=== PATIENT | male | born 1950 | race Caucasian/White ===

== ENCOUNTER 2016-08-31 10:27 | Emergency (ER) | payer BC, OTHER ==
--- NOTE | 2016-08-31 10:33 | PDOC ---
History of Present Illness <Chelo Garza - Last Filed: 08/31/16 11:41> <Tristan Mckinney - Last Filed: 08/31/16 15:34> - General Stated Complaint: CHEST PAIN - History of Present Illness Initial Comments: 08/31/16 10:54 Patient is a 66 year old male, former smoker, with significant medical hx of HLD and HTN who is presenting to the ED with precordial chest pain and diaphoresis since this morning. 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 The patient went outside and had a sudden onset of chest pain and diaphoresis. He sat down and called out to his that he wasn't feeling well. Patient's called EMS and he was brought to the ED. The patient rates his chest pain 7/10 in severity. Denies hx of past NM. NKDA. (Chelo Garza) Past History <Chelo Garza - Last Filed: 08/31/16 11:41> - Past Medical History HTN: Yes <Tristan Mckinnye - Last Filed: 08/31/16 15:34> - Past Medical History Allergies/Adverse Reactions: Allergies Allergy/AdvReac Type Severity Reaction Status Date / Time No Allergy Information Allergy Verified 08/31/16 10:48 Available Home Medications: Ambulatory Orders Atorvastatin Ca [Lipitor] 40 mg PO HS 08/31/16 Folic Acid 1 mg PO DAILY 08/31/16 Irbesartan 150 mg PO DAILY 08/31/16 Leflunomide [Arava] 20 mg PO DAILY 08/31/16 Methotrexate [Mexate -] 2.5 mg PO Q7D 08/31/16 Metoprolol Succinate [Toprol Xl -] 25 mg PO DAILY 08/31/16 Tamsulosin HCl [Flomax] 0.4 mg PO DAILY 08/31/16 Review of Systems <Chelo Garza - Last Filed: 08/31/16 11:41> <Tristan Mckinney - Last Filed: 08/31/16 15:34> - Review of Systems Comments:: 08/31/16 10:58 CONSTITUTIONAL: Present: diaphoresis Absent: fever, chills, generalized weakness, malaise, loss of appetite HEENT: Absent: rhinorrhea, nasal congestion, throat pain, throat swelling, difficulty swallowing, mouth swelling, ear pain, eye pain, visual changes CARDIOVASCULAR: Present: chest pain Absent: syncope, palpitations, irregular heart rate, lightheadedness, peripheral edema RESPIRATORY: Absent: cough, shortness of breath, dyspnea with exertion, orthopnea, wheezing, stridor, hemoptysis GASTROINTESTINAL: Absent: abdominal pain, abdominal distension, nausea, vomiting, diarrhea, constipation, melena, hematochezia GENITOURINARY: Absent: dysuria, frequency, urgency, hesitancy, hematuria, flank pain, genital pain MUSCULOSKELETAL: Absent: myalgia, arthralgia, joint swelling SKIN: Absent: rash, itching, pallor HEMATOLOGIC/IMMUNOLOGIC: Absent: easy bleeding, easy bruising, lymphadenopathy, frequent infections ENDOCRINE: Absent: unexplained weight gain, unexplained weight loss, heat intolerance, cold intolerance NEUROLOGIC: Absent: headache, focal weakness or paresthesia, dizziness, unsteady gait, seizure, mental status changes, bladder or bowel incontinence. PSYCHIATRIC: Absent: anxiety, depression, suicidal or homicidal ideation, hallucinations (Chelo Garza) *Physical Exam <Chelo Garza - Last Filed: 08/31/16 11:41> <Tristan Mckinney - Last Filed: 08/31/16 15:34> - Vital Signs Last Vital Signs Temp Pulse Resp BP Pulse Ox 97 F L 72 18 142/104 100 08/31/16 11:00 08/31/16 11:25 08/31/16 11:25 08/31/16 11:25 08/31/16 11:25 - Physical Exam Comments: 08/31/16 11:02 GENERAL: Well developed, well nourished. Awake and alert. Diaphoretic. HEENT: Normocephalic, atraumatic. PERRLA, EOMI. No conjunctival pallor. Sclera are non- icteric. Moist mucous membranes. Oropharynx is clear. NECK: Supple. Full ROM. No JVD. Carotid pulses 2+ and symmetric, without bruits. No thyromegaly. No lymphadenopathy. CARDIOVASCULAR: EKG shows AFib although patient sounds regular on auscultation. No murmurs, rubs , or gallops. Distal pulses are 2+ and symmetric. PULMONARY: No evidence of respiratory distress. Lungs clear to auscultation bilaterally. No wheezing, rales or rhonchi. ABDOMINAL: Soft. Non-tender. Non-distended. No rebound or guarding. No organomegaly. Normoactive bowel sounds. MUSCULOSKELETAL: Normal range of motion at all joints. No bony deformities or tenderness. No CVA tenderness. EXTREMITIES: No cyanosis. No clubbing. No edema. No calf tenderness. SKIN: Warm and dry. Normal capillary refill. No rashes. No jaundice. NEUROLOGICAL: Alert, awake, appropriate. Cranial nerves 2-12 intact. Normal speech. Gait is normal without ataxia. PSYCHIATRIC: Cooperative. Good eye contact. Appropriate mood and affect. (Chelo Garza) Heart Score/ECG Review <Chelo Garza - Last Filed: 08/31/16 11:41> <Tristan Mckinney - Last Filed: 08/31/16 15:34> #1 08/31/16 11:05 Atrial fibrillation at 77 bpm Inferior-posterior infarct, possibly acute Lateral injury pattern ACUTE NM / STEMI Consider right ventricular involvement in acute inferior infarct Abnormal ECG (Chelo Garza) ED Treatment Course - LABORATORY CBC & Chemistry Diagram: 08/31/16 10:45 08/31/16 10:45 <Chelo Garza - Last Filed: 08/31/16 11:41> - LABORATORY CBC & Chemistry Diagram: 08/31/16 10:45 08/31/16 10:45 <Tristan Mckinney - Last Filed: 08/31/16 15:34> - ADDITIONAL ORDERS Additional order review: Laboratory Results 08/31/16 08/31/16 08/31/16 10:45 10:45 10:45 INR 1.01 Sodium 143 Potassium 3.5 Chloride 108 H Carbon Dioxide 24 Anion Gap 11 BUN 18 Creatinine 1.0 Creat Clearance w eGFR > 60 Random Glucose 224 H Calcium 9.0 Magnesium 2.0 Total Bilirubin 0.5 AST 24 ALT 39 Alkaline Phosphatase 82 Creatine Kinase 205 Creatine Kinase Index 2.1 CK-MB (CK-2) 4.273 H CK-MB (CK-2) Rel Index Cancelled Troponin I 0.09 H Total Protein 7.1 Albumin 3.9 08/31/16 10:45 RBC 4.49 MCV 95.7 MCHC 32.8 RDW 14.6 MPV 9.0 Neutrophils % 57.6 Lymphocytes % 31.4 Monocytes % 9.3 Eosinophils % 1.2 Basophils % 0.5 - RADIOLOGY Radiology Studies Ordered: Category Date Time Status CHEST X-RAY PORTABLE* [RAD] Stat Radiology 08/31/16 10:44 Completed Radiograph Interpretation: 08/31/16 11:41 Chest X-Ray Impression: Some congestive changes. Reported By: Fredrick Carey MD (Chelo Garza) - Medications Given in the ED: ED Medications Discontinued Medications Generic Name Dose Route Start Last Admin Trade Name Freq PRN Reason Stop Dose Admin Aspirin 324 mg 08/31/16 10:51 08/31/16 10:55 Asa - PO 08/31/16 10:52 324 mg ONCE ONE Administration Clopidogrel Bisulfate 600 mg 08/31/16 10:48 08/31/16 10:55 Plavix - PO 08/31/16 10:49 600 mg ONCE ONE Administration Heparin Sodium (Porcine) 5,000 unit 08/31/16 10:51 08/31/16 11:00 Heparin - IVPUSH 08/31/16 10:52 5,000 unit ONCE ONE Administration Heparin Sodium/Dextrose 500 mls @ 20 mls/hr 08/31/16 11:00 08/31/16 11:00 Heparin Infusion - IVPB 20 mls/hr TITR GOVIND Administration Protocol 1,000 UNITS/HR Metoprolol Tartrate 5 mg 08/31/16 10:52 08/31/16 10:45 Lopressor Injection - IVPUSH 08/31/16 10:53 5 mg ONCE ONE Administration Morphine Sulfate 4 mg 08/31/16 11:07 08/31/16 11:16 Morphine Injection - IVPUSH 08/31/16 11:08 4 mg ONCE ONE Administration Medical Decision Making - Critical Care Time Total Critical Care Time (minutes): 35 Critical Care Statement: The care of this patient involved high complexity decision making to prevent further life threatening deterioration of the patient 's condition and/or to evalute & treat vital organ system(s) failure or risk of failure. <Chelo Garza - Last Filed: 08/31/16 11:41> - Critical Care Time Total Critical Care Time (minutes): 35 Critical Care Statement: The care of this patient involved high complexity decision making to prevent further life threatening deterioration of the patient 's condition and/or to evalute & treat vital organ system(s) failure or risk of failure. <Tristan Mckinney - Last Filed: 08/31/16 15:34> - Medical Decision Making 08/31/16 11:06 Acute inferior wall NM. Transferring to [facility], accepted by Dr. Singh. Code red transfer. (Chelo Garza) 08/31/16 15:31 ACUTE IWMI, stable vital signs, in pain. 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 (Tristan Mckinney) *DC/Admit/Observation/Transfer <Chelo Garza - Last Filed: 08/31/16 11:41> - Discharge Dispostion Admit: No - Transfer to Acute Care Facility Receiving Facility: [facility]. <Tristan Mckinney - Last Filed: 08/31/16 15:34> Diagnosis at time of Disposition: NM Acute myocardial infarction - Discharge Dispostion Disposition: TRANSFER ACUTE CARE/OTHER HOSP Condition at time of disposition: Stable - Referrals Referrals: Andrea Hua MD [Primary Care Provider] - - Patient Instructions Printed Discharge Instructions: DI for Chest Pain, DI for Atypical Chest Pain - Attestations Scribe Attestion: 08/31/16 11:07 Documentation prepared by Chelo Garza, acting as medical unit secretary for Tristan Mckinney MD. (Chelo Garza)
[2016-08-31] MEDS ORDERED: ASPIRIN 81 MG CHEWABLE TABLETS ONE (10:42)
[2016-08-31] MEDS ORDERED: METOPROLOL TARTRATE 5 MG/5 ML VIAL ONE (10:42)
[2016-08-31] MEDS ORDERED: CLOPIDOGREL BISULFATE 300 MG TABLET ONE (10:44)
[2016-08-31] MEDS ORDERED: CLOPIDOGREL BISULFATE 300 MG TABLET PO ONE (10:48)
[2016-08-31 10:49] LABS: BASOPHIL 0.5 % (0-2.0); EOSINOPHIL 1.2 % (0-4.5); MCH 31.4 pg (25.7-33.7); MCHC 32.8 g/dl (32.0-35.9); MEAN CELL VOLUME 95.7 fl (80-96); NEUTROPHILS 57.6 % (42.8-82.8); PLATELET COUNT 243 K/MM3 (134-434); RDW 14.6 % (11.9-15.9); WHITE BLOOD COUNT 9.6 K/mm3 (4.0-10.0)
[2016-08-31 10:51] VITALS: BMI 27.3
[2016-08-31] MEDS ORDERED: HEPARIN NA (PORCINE) 5,000 UNITS/ML 1ML VIAL IVPUSH ONE (10:51)
[2016-08-31] MEDS ORDERED: ASPIRIN 81 MG CHEWABLE TABLETS PO ONE (10:51)
[2016-08-31] MEDS ORDERED: METOPROLOL TARTRATE 5 MG/5 ML VIAL IVPUSH ONE (10:52)
[2016-08-31] MEDS ORDERED: HEPARIN NA (PORCINE) 5,000 UNITS/ML 1ML VIAL ONE (10:54)
[2016-08-31] MEDS ORDERED: HEPARIN INFUSION - 500 ML IVPB ONE (10:54)
[2016-08-31 11:00] LABS: INR 1.01 (0.82-1.09); PROTHROMBIN TIME (PATIENT) 11.1 SEC (9.98-11.88)
[2016-08-31] MEDS ORDERED: HEPARIN INFUSION - 500 ML IVPB SCH (11:00)
[2016-08-31] MEDS ORDERED: morphine CARPU-JECT 4 MG/1 ML DISP.SYRIN IVPUSH ONE (11:07)
[2016-08-31] MEDS ORDERED: morphine CARPU-JECT 4 MG/1 ML DISP.SYRIN ONE (11:11)
[2016-08-31 11:19] LABS: ALBUMIN 3.9 g/dl (3.4-5.0); ANION GAP 11 (8-16); BILIRUBIN,TOTAL 0.5 mg/dL (0.2-1.0); CO2 24 mmol/L (21-32); GLUCOSE,RANDOM 224 mg/dL (74-106); SGOT/AST 24 U/L (15-37); SGPT/ALT 39 U/L (12-78); TOT PROT 7.1 g/dl (6.4-8.2)
[2016-08-31 11:21] LABS: ALK PHOS 82 U/L (45-117); TROPONIN I 0.09 ng/ml (0.00-0.05)
--- NOTE | 2016-08-31 11:27 | EKG ---
Test Reason : Blood Pressure : / mmHG Vent. Rate : 077 BPM Atrial Rate : 000 BPM P-R Int : 000 ms QRS Dur : 108 ms QT Int : 388 ms P-R-T Axes : 000 079 100 degrees QTc Int : 439 ms ATRIAL FIBRILLATION INFERIOR-POSTERIOR INFARCT , POSSIBLY ACUTE LATERAL INJURY PATTERN ACUTE NV / STEMI Consider right ventricular involvement in acute inferior infarct ABNORMAL ECG WHEN COMPARED WITH ECG OF 17-MAY-2011 04:14, SIGNIFICANT CHANGES HAVE OCCURRED Confirmed by TRACEE BOOTHE MD ([id number]) on 08/31/2016 11:26:27 AM Referred By: Confirmed By:TRACEE BOOTHE MD
[2016-08-31 11:34] VITALS: TEMP 97
[2016-08-31 11:35] VITALS: BP 142/104; PULSE 72
[2016-09-01] MEDS ORDERED: ASPIRIN COATED 81 MG TABLET.EC PO SCH (10:00)
== END 2016-08-31 11:35 | disposition short-term general hospital (02) ==
LOC: JER 10:27
PROC: 3E033GC Introduction of Other Therapeutic Substance into Peripheral Vein, Percutaneous Approach (ICD-10-PCS; principal; 2016-08-31)
PROC: 3E033NZ Introduction of Analgesics, Hypnotics, Sedatives into Peripheral Vein, Percutaneous Approach (ICD-10-PCS; 2016-08-31)
DX: I21.19 ST elevation (STEMI) myocardial infarction involving other coronary artery of inferior wall (principal); I10 Essential (primary) hypertension; E78.00 Pure hypercholesterolemia, unspecified
CPT/HCPCS: 36415; 71010-TC; 80053; 82550; 82553; 83735; 84484; 85025; 85610; 93005; 93010; 96365; 96375; 99285-25; J1644

== ENCOUNTER 2021-05-27 23:29 | Observation (INO) | payer OTHER ==
[2021-05-27 23:59] VITALS: BMI 27.3
[2021-05-28] MEDS ORDERED: ASPIRIN 81 MG CHEWABLE TABLETS PO ONE (00:29)
[2021-05-28 00:44] LABS: BASO % 0.9 % (0-2.0); EOS % 1.4 % (0-4.5); HEMATOCRIT 42.5 % (35.4-49); HEMOGLOBIN 14.1 GM/dL (11.7-16.9); LYMPH % 23.7 % (8-40); MCH 33.2 pg (25.7-33.7); MCHC 33.2 g/dl (32.0-35.9); MEAN CELL VOLUME 100.2 fl (80-96); MEAN PLT VOLUME 9.7 fl (7.5-11.1); MONO % 11.3 % (3.8-10.2); NEUT % 62.7 % (42.8-82.8); PLATELET COUNT 179 10^3/uL (134-434); RBC 4.24 M/mm3 (4.00-5.60); RDW 14.8 % (11.9-15.9); WHITE BLOOD COUNT 9.1 K/mm3 (4.0-10.0)
[2021-05-28] MEDS ORDERED: ASPIRIN 81 MG CHEWABLE TABLETS ONE (00:48)
[2021-05-28 00:52] LABS: INR 0.93 (0.83-1.09); PROTHROMBIN TIME (PATIENT) 11.4 SEC (9.7-13.0)
[2021-05-28 00:55] LABS: ACTIVATED PTT 29.1 SECONDS (25.2-36.5)
[2021-05-28 01:05] LABS: ALBUMIN 3.8 g/dl (3.4-5.0); BLOOD UREA NITROGEN 34.6 mg/dL (7-18); CALCIUM 9.3 mg/dL (8.5-10.1); MAGNESIUM 1.9 mg/dL (1.8-2.4)
[2021-05-28 01:09] LABS: CREATININE 1.1 mg/dL (0.55-1.3)
[2021-05-28 01:10] LABS: BILIRUBIN,TOTAL 0.4 mg/dL (0.2-1); TOT PROT 7.4 g/dl (6.4-8.2)
[2021-05-28] MEDS ORDERED: DEXAMETHASONE SOD PHOSPHATE 10 MG/1 ML VIAL IVPUSH ONE (03:33)
[2021-05-28] MEDS ORDERED: DEXAMETHASONE SOD PHOSPHATE 10 MG/1 ML VIAL ONE (04:58)
[2021-05-28] MEDS ORDERED: CLINDAMYCIN 600MG PREMIX IVPB 600 MG/50 ML BAG IVPB ONE ×2 (05:02→05:25)
[2021-05-28 06:47] VITALS: BP 122/75; PULSE 84; TEMP 98.8
[2021-05-28 07:24] LABS: CHLORIDE 105 mmol/L (98-107); SODIUM 139 mmol/L (136-145)
[2021-05-28 07:30] LABS: ANION GAP 7 MMOL/L (8-16); CALCIUM 9.2 mg/dL (8.5-10.1); CO2 27 mmol/L (21-32); GLUCOSE,RANDOM 109 mg/dL (74-106)
[2021-05-28 07:34] LABS: CREATININE 1.1 mg/dL (0.55-1.3)
[2021-05-28 07:40] LABS: BLOOD UREA NITROGEN 31.7 mg/dL (7-18)
[2021-05-28] MEDS ORDERED: TAMSULOSIN HCL 0.4 MG CAP PO SCH (08:30)
[2021-05-28] MEDS ORDERED: LOSARTAN POTASSIUM 50 MG TABLET PO SCH (10:00)
[2021-05-28] MEDS ORDERED: ASPIRIN COATED 81 MG TABLET.EC PO SCH (10:00)
[2021-05-28] MEDS ORDERED: metoPROLOL SUCCINATE 25 MG TAB.SR.24H (FP) PO SCH (10:00)
[2021-05-28] MEDS ORDERED: ATORVASTATIN CA 40 MG TABLET (FP) PO SCH (22:00)
== END 2021-05-28 06:47 | disposition short-term general hospital (02) ==
LOC: JER 23:29 → JERBED 05-28 00:52
PROVIDERS: ADMIT Internal Medicine; ATTEND Internal Medicine
PROC: 3E03329 Introduction of Other Anti-infective into Peripheral Vein, Percutaneous Approach (ICD-10-PCS; principal; 2021-05-28)
PROC: 3E033GC Introduction of Other Therapeutic Substance into Peripheral Vein, Percutaneous Approach (ICD-10-PCS; 2021-05-28)
DX: J02.9 Acute pharyngitis, unspecified (principal); I10 Essential (primary) hypertension; N40.0 Benign prostatic hyperplasia without lower urinary tract symptoms; Z95.1 Presence of aortocoronary bypass graft; R06.02 Shortness of breath; R07.89 Other chest pain; Z87.891 Personal history of nicotine dependence
CPT/HCPCS: 36415; 70490-TC; 71045-TC-FY; 71275-TC; 80048; 80053; 82550; 82553; 83735; 83880; 84484; 85025; 85610; 85730; 93005; 93010; 96365; 96375; 99285-25; C9803; G0378; J1100; U0003; U0005

== ENCOUNTER 2022-01-12 10:29 | Inpatient (IN) | payer OTHER ==
[2022-01-12 10:36] VITALS: BMI 26.6
[2022-01-12 12:02] LABS: BASO % 2.9 % (0-2.0); EOS % 1.9 % (0-4.5); HEMATOCRIT 38.4 % (35.4-49); HEMOGLOBIN 12.5 GM/dL (11.7-16.9); LYMPH % 12.8 % (8-40); MCH 32.3 pg (25.7-33.7); MCHC 32.7 g/dl (32.0-35.9); MEAN CELL VOLUME 98.9 fl (80-96); MEAN PLT VOLUME 9.4 fl (7.5-11.1); MONO % 10.5 % (3.8-10.2); NEUT % 71.9 % (42.8-82.8); PLATELET COUNT 229 10^3/uL (134-434); RBC 3.88 M/mm3 (4.00-5.60); RDW 15.6 % (11.9-15.9); WHITE BLOOD COUNT 7.7 K/mm3 (4.0-10.0)
[2022-01-12 12:21] LABS: ALBUMIN 3.7 g/dl (3.4-5.0); CALCIUM 9.3 mg/dL (8.5-10.1)
[2022-01-12 12:24] LABS: CREATININE 1.6 mg/dL (0.55-1.3)
[2022-01-12 12:26] LABS: BILIRUBIN,TOTAL 1.3 mg/dL (0.2-1); TOT PROT 7.1 g/dl (6.4-8.2)
[2022-01-12 12:27] LABS: EPI CELLS 1 /uL (0-25.1); HYALINE CASTS 0 /uL (0-3.1); PH,URINE 5.5 (5.0-8.0); URINE APPEARANCE CLEAR; URINE BACTERIA 1 /uL (0-1359); URINE BILIRUBIN NEGATIVE (NEGATIVE); URINE COLOR YELLOW; URINE GLUCOSE (UA) NEGATIVE (NEGATIVE); URINE KETONE NEGATIVE (NEGATIVE); URINE LEUK ESTERASE NEGATIVE (NEGATIVE); URINE NITRITE NEGATIVE (NEGATIVE); URINE PROTEIN NEGATIVE (NEGATIVE); URINE RBC 27 /uL (0-23.9); URINE UROBILINOGEN 0.2 mg/dL (0.2-1.0); URINE WBC 4 /uL (0-25.8)
[2022-01-12 12:46] LABS: ANISOCYTOSIS 0; MACROCYTOSIS 0; PLATELET ESTIMATE NORMAL
[2022-01-12] MEDS ORDERED: CEFTRIAXONE 1,000 MG in DEXTROSE 5%-WATER - 50 ML IVPB ONE (13:34)
[2022-01-12] MEDS ORDERED: TAMSULOSIN HCL 0.4 MG CAP PO ONE (14:02)
[2022-01-12] MEDS ORDERED: TAMSULOSIN HCL 0.4 MG CAP ONE (15:11)
[2022-01-12] MEDS ORDERED: CEFTRIAXONE 1 GM/50 ML BAG ONE (15:12)
[2022-01-12] MEDS ORDERED: ACETAMINOPHEN 1000 MG/100 ML BAG IVPB ONE (15:28)
[2022-01-12] MEDS ORDERED: ACETAMINOPHEN INJECTION 100 ML IVPB ONE (15:49)
[2022-01-12] MEDS ORDERED: oxyCODONE HCL 5 MG TABLET PO ONE (19:32)
[2022-01-12] MEDS ORDERED: oxyCODONE HCL 5 MG TABLET ONE (19:40)
[2022-01-12] MEDS: POTASSIUM CHLORIDE 10 MEQ in SODIUM CHLORIDE 0.45% 1,000 ML IVPB SCH (19:57)
[2022-01-12] MEDS ORDERED: MONTELUKAST NA 10 MG TABLET PO PRN (22:00)
[2022-01-12] MEDS ORDERED: ACETAMINOPHEN 1000 MG/100 ML BAG IVPB PRN (22:00)
[2022-01-12] MEDS ORDERED: ATORVASTATIN CA 80 MG TABLET (FP) ONE (22:07)
[2022-01-12] MEDS ORDERED: ATORVASTATIN CA 40 MG TABLET (FP) ONE (22:13)
[2022-01-12] MEDS: ATORVASTATIN CA 40 MG TABLET (FP) PO SCH (22:18)
[2022-01-13 07:40] LABS: BASO % 0.6 % (0-2.0); EOS % 1.4 % (0-4.5); HEMATOCRIT 36.6 % (35.4-49); HEMOGLOBIN 12.1 GM/dL (11.7-16.9); LYMPH % 15.9 % (8-40); MCH 32.7 pg (25.7-33.7); MCHC 33.1 g/dl (32.0-35.9); MEAN CELL VOLUME 98.8 fl (80-96); MONO % 13.2 % (3.8-10.2); NEUT % 68.9 % (42.8-82.8); PLATELET COUNT 205 10^3/uL (134-434); RDW 15.9 % (11.9-15.9); WHITE BLOOD COUNT 7.5 K/mm3 (4.0-10.0)
[2022-01-13 08:16] LABS: BLOOD UREA NITROGEN 22.5 mg/dL (7-18)
[2022-01-13 08:17] LABS: BILIRUBIN,TOTAL 1.1 mg/dL (0.2-1); TOT PROT 6.6 g/dl (6.4-8.2)
[2022-01-13 08:19] LABS: ALBUMIN 3.5 g/dl (3.4-5.0); CALCIUM 8.9 mg/dL (8.5-10.1); PHOSPHOROUS 3.6 mg/dL (2.5-4.9)
[2022-01-13 08:23] LABS: MAGNESIUM 2.3 mg/dL (1.8-2.4)
[2022-01-13 08:24] LABS: CREATININE 1.2 mg/dL (0.55-1.3)
[2022-01-13] MEDS ORDERED: DEXTROSE 5%-WATER - 50 ML IVPB ONE (10:30)
[2022-01-13] MEDS ORDERED: cefTRIAXone SODIUM 1 GM VIAL ONE (10:30)
[2022-01-13] MEDS: FINASTERIDE 5 MG TABLET (FP) PO SCH (10:47)
[2022-01-13] MEDS: FOLIC ACID 1 MG TABLET (FP) PO SCH (10:47)
[2022-01-13] MEDS: LOSARTAN POTASSIUM 50 MG TABLET PO SCH (10:47)
[2022-01-13] MEDS: TAMSULOSIN HCL 0.4 MG CAP PO SCH (10:47)
[2022-01-13] MEDS: CEFTRIAXONE 1 GM in DEXTROSE 5%-WATER - 50 ML IVPB SCH (10:48)
[2022-01-13] MEDS: SODIUM CHLORIDE 0.45%/POT 20 MEQ/1,000 ML INFUS.BAG IV SCH (12:30)
[2022-01-13] MEDS: POTASSIUM CHLORIDE 10 MEQ in SODIUM CHLORIDE 0.45% 1,000 ML IVPB SCH (14:39)
[2022-01-13] MEDS: ATORVASTATIN CA 40 MG TABLET (FP) PO SCH (23:03)
[2022-01-14] MEDS: SODIUM CHLORIDE 0.45%/POT 20 MEQ/1,000 ML INFUS.BAG IV SCH ×3 (05:12→19:25)
[2022-01-14] MEDS ORDERED: DEXTROSE 5%-WATER - 50 ML IVPB ONE (09:40)
[2022-01-14] MEDS ORDERED: cefTRIAXone SODIUM 1 GM VIAL ONE (09:40)
[2022-01-14] MEDS: FINASTERIDE 5 MG TABLET (FP) PO SCH (09:43)
[2022-01-14] MEDS: TAMSULOSIN HCL 0.4 MG CAP PO SCH (09:43)
[2022-01-14] MEDS: FOLIC ACID 1 MG TABLET (FP) PO SCH (09:43)
[2022-01-14] MEDS: CEFTRIAXONE 1 GM in DEXTROSE 5%-WATER - 50 ML IVPB SCH (09:43)
[2022-01-14] MEDS: LOSARTAN POTASSIUM 50 MG TABLET PO SCH (09:43)
[2022-01-14] MEDS ORDERED: oxyCODONE HCL 5 MG TABLET PO PRN (14:02)
[2022-01-14] MEDS: ATORVASTATIN CA 40 MG TABLET (FP) PO SCH (21:30)
[2022-01-15] MEDS ORDERED: DEXTROSE 5%-WATER - 50 ML IVPB ONE (09:05)
[2022-01-15] MEDS ORDERED: cefTRIAXone SODIUM 1 GM VIAL ONE (09:05)
[2022-01-15 10:00] LABS: CALCIUM 8.7 mg/dL (8.5-10.1)
[2022-01-15 10:01] LABS: ALBUMIN 3.2 g/dl (3.4-5.0); BLOOD UREA NITROGEN 20.5 mg/dL (7-18)
[2022-01-15 10:03] LABS: CREATININE 1.5 mg/dL (0.55-1.3); TOT PROT 6.4 g/dl (6.4-8.2)
[2022-01-15 10:04] LABS: BILIRUBIN,TOTAL 0.8 mg/dL (0.2-1); URIC ACID 4.5 mg/dL (2.6-7.2)
[2022-01-15] MEDS: FOLIC ACID 1 MG TABLET (FP) PO SCH (10:28)
[2022-01-15] MEDS: LOSARTAN POTASSIUM 50 MG TABLET PO SCH (10:28)
[2022-01-15] MEDS: FINASTERIDE 5 MG TABLET (FP) PO SCH (10:28)
[2022-01-15] MEDS: TAMSULOSIN HCL 0.4 MG CAP PO SCH (10:28)
[2022-01-15] MEDS: CEFTRIAXONE 1 GM in DEXTROSE 5%-WATER - 50 ML IVPB SCH (10:29)
[2022-01-15] MEDS: PATIENT'S OWN MEDICATION (NON-FORMULARY) (Famotidine 40 MG Tablet) PO SCH ×2 (10:47→10:48)
[2022-01-15] MEDS ORDERED: ACETAMINOPHEN INJECTION 100 ML IVPB ONE (13:56)
[2022-01-15] MEDS ORDERED: FENTANYL CITRATE/PF 50 MCG/ML VIAL ONE (14:21)
[2022-01-15] MEDS ORDERED: KETAMINE HCL 200 MG/20 ML VIAL ONE (14:21)
[2022-01-15] MEDS ORDERED: PROPOFOL 20 ML ONE ×2 (14:21)
[2022-01-15] MEDS ORDERED: SODIUM CHLORIDE 0.45%/POT 20 MEQ/1,000 ML INFUS.BAG IV SCH (15:26)
[2022-01-15] MEDS ORDERED: MONTELUKAST NA 10 MG TABLET PO PRN (15:26)
[2022-01-15] MEDS: SODIUM CHLORIDE 0.45%/POT 20 MEQ/1,000 ML INFUS.BAG IV SCH (18:26)
[2022-01-15] MEDS ORDERED: ATORVASTATIN CA 40 MG TABLET (FP) PO SCH (22:00)
[2022-01-16] MEDS ORDERED: TAMSULOSIN HCL 0.4 MG CAP PO SCH (08:30)
[2022-01-16] MEDS ORDERED: cefTRIAXone SODIUM 1 GM VIAL ONE (09:10)
[2022-01-16] MEDS ORDERED: DEXTROSE 5%-WATER - 50 ML IVPB ONE (09:11)
[2022-01-16] MEDS ORDERED: FOLIC ACID 1 MG TABLET (FP) PO SCH (10:00)
[2022-01-16] MEDS ORDERED: LOSARTAN POTASSIUM 50 MG TABLET PO SCH (10:00)
[2022-01-16] MEDS ORDERED: FINASTERIDE 5 MG TABLET (FP) PO SCH (10:00)
[2022-01-16] MEDS ORDERED: CEFTRIAXONE 1 GM in DEXTROSE 5%-WATER - 50 ML IVPB SCH (10:00)
[2022-01-16 10:23] LABS: CALCIUM 8.6 mg/dL (8.5-10.1)
[2022-01-16 10:24] LABS: BLOOD UREA NITROGEN 13.1 mg/dL (7-18)
[2022-01-16 10:27] LABS: CREATININE 1.1 mg/dL (0.55-1.3)
[2022-01-16 11:11] VITALS: BP 126/74; PULSE 92; TEMP 98.5
== END 2022-01-16 13:24 | disposition home or self-care (01) | DRG 660 ==
LOC: JER 10:29 → JERBED 14:14 → J8W 01-13 08:33
PROVIDERS: ADMIT Family Medicine; ATTEND Family Medicine
PROC: 0TC78ZZ Extirpation of Matter from Left Ureter, Via Natural or Artificial Opening Endoscopic (ICD-10-PCS; principal; 2022-01-15 13:30)
PROC: 0T778DZ Dilation of Left Ureter with Intraluminal Device, Via Natural or Artificial Opening Endoscopic (ICD-10-PCS; 2022-01-15 13:30)
PROC: BT1FZZZ Fluoroscopy of Left Kidney, Ureter and Bladder (ICD-10-PCS; 2022-01-15 13:30)
PROC: 0TJB8ZZ Inspection of Bladder, Via Natural or Artificial Opening Endoscopic (ICD-10-PCS; 2022-01-15 13:30)
DX: N13.2 Hydronephrosis with renal and ureteral calculous obstruction (principal); N13.8 Other obstructive and reflux uropathy; I25.10 Atherosclerotic heart disease of native coronary artery without angina pectoris; N17.9 Acute kidney failure, unspecified; N40.0 Benign prostatic hyperplasia without lower urinary tract symptoms; I10 Essential (primary) hypertension; Z95.1 Presence of aortocoronary bypass graft; I48.0 Paroxysmal atrial fibrillation; E78.00 Pure hypercholesterolemia, unspecified; K21.9 Gastro-esophageal reflux disease without esophagitis; I25.2 Old myocardial infarction; R07.89 Other chest pain
CPT/HCPCS: 0241U-QW; 36415; 74176-TC; 76000-TC-FY; 80048; 80053; 81003; 83735; 84100; 84550; 85025; 87040; 87086; 93005; 93010; 94010; 94760; 99285-25; J3480

== ENCOUNTER 2022-01-26 00:30 | Emergency (ER) | payer OTHER ==
[2022-01-26 00:46] VITALS: BP 130/77; PULSE 77; TEMP 98.4; BMI 26.9
[2022-01-26] MEDS ORDERED: MICONAZOLE NITRATE 14 GM/TUBE TUBE TP ONE (02:27)
[2022-01-26 03:33] LABS: EPI CELLS 2 /uL (0-25.1); HYALINE CASTS 1 /uL (0-3.1); URINE APPEARANCE CLOUDY; URINE BACTERIA 2 /uL (0-1359); URINE BILIRUBIN NEGATIVE (NEGATIVE); URINE COLOR YELLOW; URINE GLUCOSE (UA) NEGATIVE (NEGATIVE); URINE KETONE NEGATIVE (NEGATIVE); URINE LEUK ESTERASE NEGATIVE (NEGATIVE); URINE NITRITE NEGATIVE (NEGATIVE); URINE PROTEIN NEGATIVE (NEGATIVE); URINE RBC 4 /uL (0-23.9); URINE UROBILINOGEN 0.2 mg/dL (0.2-1.0); URINE WBC 2 /uL (0-25.8)
== END 2022-01-26 03:22 | disposition home or self-care (01) ==
LOC: JER 00:30
DX: N48.29 Other inflammatory disorders of penis (principal)
CPT/HCPCS: 81003; 87086; 99283-25

== ENCOUNTER 2023-10-25 06:59 | Day surgery (SDC) | payer OTHER ==
[2023-10-25 08:34] LABS: EPI CELLS 2 /uL (0-25.1); HYALINE CASTS 1 /uL (0-3.1); PH,URINE 5.5 (5.0-8.0); URINE APPEARANCE CLOUDY; URINE BACTERIA 1 /uL (0-1359); URINE BILIRUBIN NEGATIVE (NEGATIVE); URINE COLOR ORANGE; URINE GLUCOSE (UA) NEGATIVE (NEGATIVE); URINE KETONE NEGATIVE (NEGATIVE); URINE LEUK ESTERASE NEGATIVE (NEGATIVE); URINE NITRITE NEGATIVE (NEGATIVE); URINE PROTEIN 1+ (NEGATIVE); URINE RBC 1393 /uL (0-23.9); URINE UROBILINOGEN 0.2 mg/dL (0.2-1.0); URINE WBC 23 /uL (0-25.8)
[2023-10-25 08:35] LABS: BASO % 0.2 % (0-2.0); EOS % 0.2 % (0-4.5); HEMATOCRIT 38.4 % (35.4-49); HEMOGLOBIN 13.2 GM/dL (11.7-16.9); LYMPH % 9.1 % (8-40); MCH 33.9 pg (25.7-33.7); MCHC 34.3 g/dl (32.0-35.9); MEAN CELL VOLUME 98.7 fl (80-96); MEAN PLT VOLUME 8.4 fl (7.5-11.1); MONO % 7.1 % (3.8-10.2); NEUT % 83.4 % (42.8-82.8); PLATELET COUNT 237 10^3/uL (134-434); RBC 3.89 M/mm3 (4.00-5.60); RDW 16.9 % (11.9-15.9); WHITE BLOOD COUNT 9.7 K/mm3 (4.0-10.0)
[2023-10-25 08:36] LABS: INR 1.08 (0.83-1.09); PROTHROMBIN TIME (PATIENT) 12.5 SEC (9.7-13.0)
[2023-10-25 08:38] LABS: ACTIVATED PTT 29.7 SECONDS (25.2-36.5)
[2023-10-25 08:44] LABS: POTASSIUM 3.9 mmol/L (3.5-5.1)
[2023-10-25 08:47] LABS: ALBUMIN 4.2 g/dl (3.4-5.0); BLOOD UREA NITROGEN 31.6 mg/dL (7-18)
[2023-10-25 08:50] LABS: CREATININE 1.4 mg/dL (0.55-1.3)
[2023-10-25 08:51] LABS: TOT PROT 7.7 g/dl (6.4-8.2)
[2023-10-25 08:52] LABS: BILIRUBIN,TOTAL 1.3 mg/dL (0.2-1)
[2023-10-25] MEDS: LACTATED RINGERS SOLUTION 1000 ML INFUS.BAG IV ONE (09:57)
[2023-10-25] MEDS ORDERED: ACETAMINOPHEN INJECTION 100 ML IVPB ONE (10:03)
[2023-10-25] MEDS: ACETAMINOPHEN 1000 MG/100 ML BAG IVPB ONE (10:18)
[2023-10-25] MEDS: morphine CARPU-JECT 2 MG/1 ML DISP.SYRIN IVPUSH ONE (10:18)
[2023-10-25] MEDS ORDERED: VANCOMYCIN 1,000 MG in DEXTROSE 5%-WATER - 250 ML IVPB ONE (12:46)
[2023-10-25] MEDS ORDERED: TAMSULOSIN HCL 0.4 MG CAP ONE ×2 (12:47→14:35)
[2023-10-25] MEDS ORDERED: CEFTRIAXONE 1 GM/50 ML BAG ONE (12:48)
[2023-10-25] MEDS: TAMSULOSIN HCL 0.4 MG CAP PO ONE (13:00)
[2023-10-25] MEDS: VANCOMYCIN PREMIX 1.75 GM 1,750 MG/350 ML PIGGYBACK IVPB ONE (13:40)
[2023-10-25] MEDS ORDERED: ACETAMINOPHEN 500 MG TABLET (FP) PO PRN (14:20)
[2023-10-25] MEDS ORDERED: ONDANSETRON 4 MG/2 ML VIAL IVPUSH PRN (14:21)
[2023-10-25] MEDS ORDERED: TAMSULOSIN HCL 0.4 MG CAP PO SCH (14:30)
[2023-10-25] MEDS: morphine SULFATE 4 MG/ML VIAL IVPUSH ONE (14:48)
[2023-10-25] MEDS: TAMSULOSIN HCL 0.4 MG CAP PO SCH (14:49)
[2023-10-25 16:26] VITALS: BMI 28.3
[2023-10-25] MEDS: SODIUM CHLORIDE 0.45% 1,000 ML IV SCH (18:06)
[2023-10-25] MEDS ORDERED: APIXABAN 5 MG TABLET PO SCH (22:00)
[2023-10-25] MEDS: HEPARIN NA (PORCINE) 5,000 UNITS/ML 1ML VIAL SQ SCH (22:48)
[2023-10-25] MEDS: ATORVASTATIN CA 40 MG TABLET (FP) PO SCH (22:48)
[2023-10-26 08:55] LABS: BASO % 0.3 % (0-2.0); EOS % 1.3 % (0-4.5); HEMOGLOBIN 11.2 GM/dL (11.7-16.9); LYMPH % 18.1 % (8-40); MCH 33.9 pg (25.7-33.7); MCHC 34.1 g/dl (32.0-35.9); MEAN CELL VOLUME 99.2 fl (80-96); MEAN PLT VOLUME 8.8 fl (7.5-11.1); NEUT % 69.3 % (42.8-82.8); PLATELET COUNT 193 10^3/uL (134-434); RBC 3.32 M/mm3 (4.00-5.60); RDW 17.1 % (11.9-15.9); WHITE BLOOD COUNT 6.5 K/mm3 (4.0-10.0)
[2023-10-26 09:08] LABS: POTASSIUM 3.5 mmol/L (3.5-5.1)
[2023-10-26 09:14] LABS: BLOOD UREA NITROGEN 23.8 mg/dL (7-18)
[2023-10-26 09:15] LABS: CREATININE 1.3 mg/dL (0.55-1.3)
[2023-10-26 09:17] LABS: TOT PROT 5.8 g/dl (6.4-8.2)
[2023-10-26] MEDS: metoPROLOL SUCCINATE 25 MG TAB.SR.24H (FP) PO SCH (09:54)
[2023-10-26] MEDS ORDERED: ONDANSETRON 4 MG/2 ML VIAL IVPUSH PRN ×3 (13:36→15:27)
[2023-10-26] MEDS ORDERED: LIDOCAINE HCL/PF 2% SDV 5ML VIAL ONE (13:40)
[2023-10-26] MEDS ORDERED: MIDAZOLAM HCL 2 MG/2 ML SINGLE DOSE VIAL ONE (13:40)
[2023-10-26] MEDS ORDERED: ONDANSETRON 4 MG/2 ML VIAL ONE (13:40)
[2023-10-26] MEDS ORDERED: DEXAMETHASONE SOD PHOSPHATE 4 MG/1 ML VIAL ONE (13:40)
[2023-10-26] MEDS ORDERED: PROPOFOL 40 ML ONE (13:40)
[2023-10-26] MEDS ORDERED: LACTATED RINGERS SOLUTION 1,000 ML IV SCH ×2 (13:45→15:27)
[2023-10-26] MEDS ORDERED: ceFAZolin SODIUM 1 GM VIAL ONE (14:12)
[2023-10-26] MEDS: ceFAZolin SODIUM 1 GM VIAL IVPB ONE (14:15)
[2023-10-26] MEDS ORDERED: ACETAMINOPHEN 500 MG TABLET (FP) PO PRN (15:27)
[2023-10-26] MEDS: SODIUM CHLORIDE 0.45% 1,000 ML IV SCH (17:35)
[2023-10-26] MEDS: ATORVASTATIN CA 40 MG TABLET (FP) PO SCH (21:18)
[2023-10-26] MEDS: HEPARIN NA (PORCINE) 5,000 UNITS/ML 1ML VIAL SQ SCH (21:18)
[2023-10-27 08:28] LABS: BASO % 0.3 % (0-2.0); EOS % 0.1 % (0-4.5); HEMATOCRIT 33.8 % (35.4-49); HEMOGLOBIN 11.6 GM/dL (11.7-16.9); LYMPH % 13.8 % (8-40); MCH 34.1 pg (25.7-33.7); MCHC 34.4 g/dl (32.0-35.9); MEAN CELL VOLUME 98.9 fl (80-96); MEAN PLT VOLUME 8.7 fl (7.5-11.1); MONO % 9.8 % (3.8-10.2); PLATELET COUNT 198 10^3/uL (134-434); RBC 3.41 M/mm3 (4.00-5.60); RDW 17.2 % (11.9-15.9); WHITE BLOOD COUNT 8.8 K/mm3 (4.0-10.0)
[2023-10-27 08:46] LABS: POTASSIUM 3.7 mmol/L (3.5-5.1)
[2023-10-27 09:01] LABS: CALCIUM 8.5 mg/dL (8.5-10.1)
[2023-10-27 09:04] LABS: ALBUMIN 3.4 g/dl (3.4-5.0)
[2023-10-27 09:05] LABS: BLOOD UREA NITROGEN 17.7 mg/dL (7-18); TOT PROT 6.5 g/dl (6.4-8.2)
[2023-10-27 09:06] LABS: BILIRUBIN,TOTAL 0.9 mg/dL (0.2-1)
[2023-10-27] MEDS: TAMSULOSIN HCL 0.4 MG CAP PO SCH (10:47)
[2023-10-27] MEDS: APIXABAN 5 MG TABLET PO SCH (12:09)
[2023-10-27 12:54] VITALS: BP 151/72; PULSE 72; RESP 20; TEMP 97.7
== END 2023-10-27 13:30 | disposition home or self-care (01) ==
LOC: JER 06:59 → UNDOADMIN 12:43 → JERBED 12:43 → J8W 15:25 → JASUSAT 10-27 09:17 → J8W 10-27 09:37 → JASUSAT 10-27 13:30
PROVIDERS: ATTEND Internal Medicine
PROC: 0T778DZ Dilation of Left Ureter with Intraluminal Device, Via Natural or Artificial Opening Endoscopic (ICD-10-PCS; principal; 2023-10-27)
DX: N13.2 Hydronephrosis with renal and ureteral calculous obstruction (principal)
CPT/HCPCS: 36415; 74176-TC; 76000-TC-FY; 76870-TC; 80053; 81003; 85025; 85610; 85730; 86850; 86900; 86901; 87086; 93005; 93010; 94760; 99285-25; C1758; C2617; J0131; J1644; J3370